=== PATIENT | female | born 1985 | race Two or more races ===

== ENCOUNTER 2022-10-09 09:00 | Emergency (ER) | payer MEDICAID, OTHER ==
[~2022-10-09] VITALS: Ht 152.4 cm; Wt 86.1 kg
[2022-10-09 09:24] VITALS: BP 156/80
[2022-10-09] MEDS ORDERED: ONDANSETRON HCL 4 MG/2 ML VIAL IV ONE (11:15)
[2022-10-09] MEDS ORDERED: SODIUM CHLORIDE 0.9% 1,000 ML IV ONE ×2 (11:15)
[2022-10-09] MEDS ORDERED: MORPHINE SULFATE 4 MG/ML SYR/VIAL IV ONE (11:15)
== END 2022-10-09 13:40 | disposition left against medical advice (07) ==
LOC: ER 09:00
DX: R10.84 Generalized abdominal pain (principal)